=== PATIENT | female | born 1985 | race Two or more races ===

== ENCOUNTER 2018-10-27 21:15 | Inpatient (IN) | payer SELFPAY ==
[2018-10-27] MEDS ORDERED: Sodium Chloride 0.9% 10 ML Syringe FLUSH PRN (21:17)
[2018-10-27] MEDS ORDERED: Ondansetron 4 MG/2 ML SDV IVPUSH PRN (21:17)
[2018-10-27] MEDS ORDERED: Oxytocin 10 Units/1 ML SDV IM ONE (21:17)
[2018-10-27] MEDS ORDERED: Nalbuphine 20 MG/ML 1 ML Syringe IVPUSH PRN (21:17)
--- NOTE | 2018-10-27 21:21 | PCM.LDHP ---
L&D History of Present Illness - General Date of Service: 10/27/18 Admit Problem/Dx: Patient Status Order with Admit Dx/Problem 10/27/18 21:17 Patient Status [ADT] Routine Admission Diagnosis/Problem Admission Diagnosis/Problem Normal labor Source of Information: Patient History Limitations: Reports: No Limitations - History of Present Illness Introduction:: Patient is a 32 y/o at 38 2/7 wks presents in labor. Contractions started earlier this PM. Decided to watch at home for awhile. now quite intense - Related Data Allergies/Adverse Reactions: Allergies Allergy/AdvReac Type Severity Reaction Status Date / Time No Known Allergies Allergy Verified 04/03/15 08:27 Home Medications: Home Meds Vit 90/Iron Fum/Folic [ Formula] 1 tab PO DAILY 04/03/15 [ History] Docusate Sodium [Colace] 100 mg PO BID PRN #30 cap 04/04/15 [Rx] Ibuprofen [Motrin] 600 mg PO Q4H PRN #30 tablet 04/04/15 [Rx] Lanolin [Lansinoh HPA] 1 applic TOP ASDIRECTED PRN #30 tube 04/04/15 [Rx] Past Medical History - Past Health History Medical/Surgical History: Denies Medical/Surgical History [employer] History: Reports: : 5 Para: 3 LMP (Approximate): Social & Family History - Tobacco Use Smoking Status *Q: Never Smoker - Alcohol Use Alcohol Use History: No - Recreational Drug Use Recreational Drug Use: No H&P Review of Systems - Review of Systems: Review Of Systems: See Below General: Reports: No Symptoms Pulmonary: Reports: No Symptoms Cardiovascular: Reports: No Symptoms Gastrointestinal: Reports: No Symptoms Genitourinary: Reports: No Symptoms Musculoskeletal: Reports: No Symptoms Psychiatric: Reports: No Symptoms L&D Exam - Exam Exam: See Below - OB Specific Contraction Intensity: Strong Movement: Active Heart Tones: Present Heart Tones per Min: 130 Heart Rate (FHR) Variability: Moderate (6-25 bmp) Presentation: Vertex - Nye Score Nye Score Cervix Position: Anterior Nye Score Consistency: Soft Nye Score Effacement: >80% Nye Score Dilation: > 5 cm Nye Score Infant's Station: +1, +2 Nye Score Total: 13 - Exam General: Alert, Oriented, Cooperative Lungs: Clear to Auscultation, Normal Respiratory Effort Cardiovascular: Regular Rate, Regular Rhythm GI/Abdominal Exam: Soft, Non-Tender Genitourinary: Normal external exam Extremities: Normal Inspection Skin: Warm, Dry, Intact - Patient Data Result Diagrams: 10/27/18 21:33 - Problem List (1) 38 weeks gestation of SNOMED Code(s): 54372572 ICD Code: Z3A.38 - 38 WEEKS GESTATION OF Status: Acute Current Visit: Yes (2) Normal labor SNOMED Code(s): 02451626 ICD Code: O80 - ENCOUNTER FOR FULL-TERM UNCOMPLICATED DELIVERY; Z37.9 - OUTCOME OF DELIVERY, UNSPECIFIED Status: Acute Current Visit: Yes (3) GBS (group B Streptococcus carrier), +RV culture, currently SNOMED Code(s): 3786378804199, 056309119, 4047312459091 ICD Code: O99.820 - STREPTOCOCCUS B CARRIER STATE COMPLICATING Status: Acute Current Visit: Yes Problem List Initiated/Reviewed/Updated: Yes Orders Last 24hrs: Active Orders 24 hr Category Date Time Status Patient Status [ADT] Routine ADT 10/27/18 21:17 Ordered Activity as Tolerated [RC] PFP Care 10/27/18 21:17 Ordered Communication Order [RC] ASDIRECTED Care 10/27/18 21:17 Ordered Heart Tones [RC] ASDIRECTED Care 10/27/18 21:17 Ordered Non Stress Test [RC] PER UNIT ROUTINE Care 10/27/18 21:17 Ordered Peripheral IV Care [RC] . DIRECTED Care 10/27/18 21:17 Ordered Vital Signs [RC] PER UNIT ROUTINE Care 10/27/18 21:17 Ordered Regular Diet [DIET] Diet 10/27/18 Dinner Ordered CBC W/O DIFF,HEMOGRAM [HEME] Routine Lab 10/27/18 21:17 Ordered RAPID PLASMA REAGIN,RPR [CHEM] Routine Lab 10/27/18 21:17 Ordered TYPE AND SCREEN [BBK] Routine Lab 10/27/18 21:17 Ordered Ampicillin 1 gm Med 10/27/18 21:30 Ordered Sodium Chloride 0.9% [Normal Saline] 100 ml IV Q4H Ampicillin 2 gm Med 10/27/18 21:17 Ordered Sodium Chloride 0.9% [Normal Saline] 100 ml IV ONETIME Nalbuphine [Nubain] Med 10/27/18 21:17 Ordered 10 mg IVPUSH Q2H PRN Ondansetron [Zofran] Med 10/27/18 21:17 Ordered 4 mg IVPUSH Q4H PRN Oxytocin [Pitocin] Med 10/27/18 21:17 Once 10 unit IM ONETIME ONE Sodium Chloride 0.9% [Saline Flush] Med 10/27/18 21:17 Ordered 10 ml FLUSH ASDIRECTED PRN Electronic Heart Tones Ext w TOCO [WOMSER] Oth 10/27/18 21:17 Ordered Routine Peripheral IV Insertion Adult [OM.PC] Routine Oth 10/27/18 21:17 Ordered Resuscitation Status Routine Resus Stat 10/27/18 21:17 Ordered Assessment/Plan Comment:: 32 y/o at 38 2/7 wks presents in labor * Labs * GBS positive, will start antibiotics, but patient 9 cm on admission. Likely will not be adequately treated * Plans unmedicated delivery * Anticipate
[2018-10-27] MEDS ORDERED: Ampicillin 2 GM in Sodium Chloride 0.9% 100 ML IV ONE (21:30)
--- NOTE | 2018-10-27 22:49 | PCM.DEL ---
L & D Note - General Info Date of Service: 10/27/18 - Delivery Note Labor: Spontaneous Delivery Outcome: Livebirth Delivery Method: Spontaneous Vaginal Delivery-Single Delivery Mode: Spontaneous Presentation: Right Occiput Anterior (EAN) Nuchal Cord: Present, Reduced Anesthesia Type: None Amniotic Fluid Description: Clear Episiotomy Type: None Laceration: None Placenta: Intact, Spontaneous Cord: 3 Vessels Estimated Blood Loss: 200 [place]: Bulb Syringe, Stimulated, Warmed, Lead Used Delivery Comments (Free Text/Narrative):: Patient found to be complete and began pushing. With maternal pushing effort head delivered from an EAN presentation. Nuchal cord present and reduced. With gentle downward traction the shoulders and body delivered. placed on maternal abdomen. Cord clamped and cut. Cord blood obtained. Placenta allowed time to separate and expelled intact. inspection of the perineum showed no lacerations - General Info Date of Service: 10/27/18 - Patient Data Vitals - Most Recent: Last Vital Signs Temp Pulse Resp 18 10/27/18 21:17 BP 128/79 10/27/18 21:17 Pulse Ox 98 10/27/18 21:17 Lab Results Last 24 Hours: Laboratory Results - last 24 hr 10/27/18 10/27/18 Range/Units 21:33 21:33 WBC 10.80 H (3.98-10.04) K/mm3 RBC 4.46 (3.98-5.22) M/mm3 Hgb 13.0 (11.2-15.7) gm/L Hct 37.2 (34.1-44.9) % MCV 83.4 (79.4-94.8) fl MCH 29.1 (25.6-32.2) pg MCHC 34.9 (32.2-35.5) g/dl RDW Std Deviation 37.8 (36.4-46.3) fL Plt Count 269 (182-369) K/mm3 MPV 11.1 (9.4-12.3) fl Blood Type O POSITIVE Gel Antibody Screen Negative Med Orders - Current: Current Medications Ampicillin Sodium 1 gm/ Sodium (Chloride) 100 mls @ 200 mls/hr IV Q4H KEVYN Nalbuphine HCl (Nubain) 10 mg IVPUSH Q2H PRN PRN Reason: pain Ondansetron HCl (Zofran) 4 mg IVPUSH Q4H PRN PRN Reason: Nausea/Vomiting Sodium Chloride (Saline Flush) 10 ml FLUSH ASDIRECTED PRN PRN Reason: Keep Vein Open Discontinued Medications Ampicillin Sodium 2 gm/ Sodium (Chloride) 100 mls @ 200 mls/hr IV ONETIME ONE Stop: 10/27/18 21:59 Oxytocin (Pitocin) 10 unit IM ONETIME ONE Stop: 10/27/18 21:18 - Problem List & Annotations (1) 38 weeks gestation of SNOMED Code(s): 24829786 Code(s): Z3A.38 - 38 WEEKS GESTATION OF Status: Acute Current Visit: Yes (2) Normal labor SNOMED Code(s): 68053656 Code(s): O80 - ENCOUNTER FOR FULL-TERM UNCOMPLICATED DELIVERY; Z37.9 - OUTCOME OF DELIVERY, UNSPECIFIED Status: Acute Current Visit: Yes (3) GBS (group B Streptococcus carrier), +RV culture, currently SNOMED Code(s): 3510559599508, 853970683, 9742916149984 Code(s): O99.820 - STREPTOCOCCUS B CARRIER STATE COMPLICATING Status: Acute Current Visit: Yes (4) Vaginal delivery SNOMED Code(s): 388498910 Code(s): O80 - ENCOUNTER FOR FULL-TERM UNCOMPLICATED DELIVERY Status: Acute Current Visit: Yes - Problem List Review Problem List Initiated/Reviewed/Updated: Yes - My Orders Last 24 Hours: My Active Orders 10/27/18 21:17 Patient Status [ADT] Routine Activity as Tolerated [RC] PFP Communication Order [RC] ASDIRECTED Non Stress Test [RC] PER UNIT ROUTINE Peripheral IV Care [RC] . DIRECTED Vital Signs [RC] PER UNIT ROUTINE Nalbuphine [Nubain] 10 mg IVPUSH Q2H PRN Ondansetron [Zofran] 4 mg IVPUSH Q4H PRN Sodium Chloride 0.9% [Saline Flush] 10 ml FLUSH ASDIRECTED PRN Electronic Heart Tones Ext w TOCO [WOMSER] Routine Peripheral IV Insertion Adult [OM.PC] Routine Resuscitation Status Routine 10/27/18 21:33 RAPID PLASMA REAGIN,RPR [CHEM] Routine 10/27/18 22:40 Patient Status Manage Transfer [TRANSFER] Routine 10/27/18 Dinner Regular Diet [DIET] 10/28/18 01:30 Ampicillin 1 gm Sodium Chloride 0.9% [Normal Saline] 100 ml IV Q4H - Assessment Assessment:: 32 y/o PPD#0 from at 38 2/7 wks - Plan Plan:: * Routine cares * Breast feeding * Discharge home in 2 days
[2018-10-27] MEDS ORDERED: Oxytocin/Lactated Ringers 10 UNIT/1,000 ML BAG IV SCH (23:45)
[2018-10-28] MEDS ORDERED: Benzocaine/Menthol 20%-0.5% Spray 56 GM Canister TOP PRN (00:26)
[2018-10-28] MEDS ORDERED: Acetaminophen 325 MG Tab PO PRN (00:26)
[2018-10-28] MEDS ORDERED: Docusate Sodium 100 MG Cap PO PRN (00:26)
[2018-10-28] MEDS ORDERED: Lanolin 100% Cream 7 GM Tube TOP PRN (00:26)
[2018-10-28] MEDS ORDERED: Witch Hazel Medicated Pads 40/Jar TOP PRN (00:26)
[2018-10-28] MEDS ORDERED: Ampicillin 1 GM in Sodium Chloride 0.9% 100 ML IV SCH (01:30)
[2018-10-28] MEDS: Ibuprofen 600 MG Tab PO PRN ×3 (03:38→20:59)
--- NOTE | 2018-10-28 08:10 | PCM.PNPP ---
- General Info Date of Service: 10/28/18 Functional Status: Reports: Pain Controlled, Tolerating Diet, Ambulating, Urinating - Review of Systems General: Reports: No Symptoms Pulmonary: Reports: No Symptoms Cardiovascular: Reports: No Symptoms Gastrointestinal: Reports: No Symptoms Genitourinary: Reports: No Symptoms Musculoskeletal: Reports: No Symptoms Neurological: Reports: No Symptoms - Patient Data Vital Signs - Most Recent: Last Vital Signs Temp 36.9 C 10/28/18 03:00 Pulse 70 10/28/18 03:00 Resp 16 10/28/18 03:00 BP 98/60 10/28/18 03:00 Pulse Ox 98 10/28/18 03:00 Weight - Most Recent: 55.338 kg I&O - Last 24 Hours: Intake & Output 10/27/18 10/28/18 10/28/18 22:59 06:59 14:59 Intake Total 1000 Balance 1000 Lab Results - Last 24 Hours: Laboratory Results - last 24 hr 10/27/18 10/27/18 10/27/18 Range/Units 21:33 21:33 21:33 WBC 10.80 H (3.98-10.04) K/mm3 RBC 4.46 (3.98-5.22) M/mm3 Hgb 13.0 (11.2-15.7) gm/L Hct 37.2 (34.1-44.9) % MCV 83.4 (79.4-94.8) fl MCH 29.1 (25.6-32.2) pg MCHC 34.9 (32.2-35.5) g/dl RDW Std Deviation 37.8 (36.4-46.3) fL Plt Count 269 (182-369) K/mm3 MPV 11.1 (9.4-12.3) fl RPR Non-reactive (NONREACTIVE) Blood Type O POSITIVE Gel Antibody Screen Negative Med Orders - Current: Current Medications Acetaminophen (Tylenol) 650 mg PO Q4H PRN PRN Reason: mild pain or fever Benzocaine/Menthol (Dermoplast Pain Relief [place]) 0 gm TOP ASDIRECTED PRN PRN Reason: Perineal Comfort Measure Docusate Sodium (Colace) 100 mg PO BID PRN PRN Reason: Constipation Emollient Ointment (Lansinoh Hpa) 0 gm TOP ASDIRECTED PRN PRN Reason: Sore Nipples Oxytocin/Lactated Ringer's (Pitocin In Lr 10 Units/1,000 Ml) 10 unit in 1,000 mls @ 3,000 mls/hr IV CONTINUOUS KEVYN Last Admin: 10/27/18 22:20 Dose: 500 munits/min, 3,000 mls/hr Ibuprofen (Motrin) 600 mg PO Q6H PRN PRN Reason: Mild pain or fever Last Admin: 10/28/18 03:38 Dose: 600 mg Witch Marilia (Tucks) 1 pad TOP ASDIRECTED PRN PRN Reason: Perineal Comfort Measure Last Admin: 10/28/18 00:37 Dose: 1 applic Discontinued Medications Ampicillin Sodium 2 gm/ Sodium (Chloride) 100 mls @ 200 mls/hr IV ONETIME ONE Stop: 10/27/18 21:59 Last Admin: 10/27/18 21:40 Dose: 200 mls/hr Ampicillin Sodium 1 gm/ Sodium (Chloride) 100 mls @ 200 mls/hr IV Q4H KEVYN Nalbuphine HCl (Nubain) 10 mg IVPUSH Q2H PRN PRN Reason: pain Ondansetron HCl (Zofran) 4 mg IVPUSH Q4H PRN PRN Reason: Nausea/Vomiting Oxytocin (Pitocin) 10 unit IM ONETIME ONE Stop: 10/27/18 21:18 Last Admin: 10/28/18 02:22 Dose: Not Given Sodium Chloride (Saline Flush) 10 ml FLUSH ASDIRECTED PRN PRN Reason: Keep Vein Open - Interaction Disposition, : in Room with Family Interaction: Holding Infant Feeding: Breastfed ; Nursed Well Support Person: - Recovery Exam Fundal Tone: Firm Fundal Level: At Umbilicus Fundal Placement: Midline Lochia Amount: Small Lochia Color: Rubra/Red Perineum Description: Intact, Minimal Bruising/Swelling Bladder Status: Voiding Urinary Elimination: Voided - Exam General: Alert, Oriented, Cooperative GI/Abdominal Exam: Soft, Non-Tender Extremities: Normal Inspection Skin: Warm, Dry, Intact - Problem List & Annotations (1) 38 weeks gestation of SNOMED Code(s): 98939318 Code(s): Z3A.38 - 38 WEEKS GESTATION OF Status: Acute Current Visit: Yes (2) Normal labor SNOMED Code(s): 67412074 Code(s): O80 - ENCOUNTER FOR FULL-TERM UNCOMPLICATED DELIVERY; Z37.9 - OUTCOME OF DELIVERY, UNSPECIFIED Status: Acute Current Visit: Yes (3) GBS (group B Streptococcus carrier), +RV culture, currently SNOMED Code(s): 2463764652811, 396664366, 5974936341984 Code(s): O99.820 - STREPTOCOCCUS B CARRIER STATE COMPLICATING Status: Acute Current Visit: Yes (4) Vaginal delivery SNOMED Code(s): 068526586 Code(s): O80 - ENCOUNTER FOR FULL-TERM UNCOMPLICATED DELIVERY Status: Acute Current Visit: Yes - Problem List Review Problem List Initiated/Reviewed/Updated: Yes - My Orders Last 24 Hours: My Active Orders 10/27/18 21:17 Peripheral IV Care [RC] . DIRECTED Resuscitation Status Routine 10/27/18 23:45 Oxytocin/Lactated Ringers [Pitocin in LR 10 Units/1,000 ML] 10 unit in 1,000 ml IV CONTINUOUS 10/28/18 00:26 Activity as Tolerated [RC] PER UNIT ROUTINE Vital Signs [RC] 03,09,15,21 Acetaminophen [Tylenol] 650 mg PO Q4H PRN Benzocaine/Menthol [Dermoplast Pain Relief [place]] See Dose Instructions TOP ASDIRECTED PRN Docusate Sodium [Colace] 100 mg PO BID PRN Ibuprofen [Motrin] 600 mg PO Q6H PRN Lanolin [Lansinoh HPA] See Dose Instructions TOP ASDIRECTED PRN Witch Marilia [Tucks] 1 pad TOP ASDIRECTED PRN Assess Lochia [WOMSER] Per Unit Routine Assess Uterine Involution [WOMSER] Per Unit Routine Breast Pump [WOMSER] Per Unit Routine Heat Therapy [OM.PC] PRN Ice Therapy [OM.PC] Per Unit Routine Perineal Care [OM.PC] Per Unit Routine Peripheral IV Discontinue [OM.PC] Routine Sitz Bath [OM.PC] Per Unit Routine 10/28/18 Breakfast Regular Diet [DIET] 10/29/18 00:26 Heat Therapy [OM.PC] PRN - Assessment Assessment:: 32 y/o PPD#1 from at 38 2/7 wks - Plan Plan:: * Routine cares * Breast feeding * Discharge home tomorrow
--- NOTE | 2018-10-29 08:06 | PCM.PNPP ---
- General Info Date of Service: 10/29/18 Functional Status: Reports: Pain Controlled, Tolerating Diet, Ambulating, Urinating - Review of Systems General: Reports: No Symptoms Pulmonary: Reports: No Symptoms Cardiovascular: Reports: No Symptoms Gastrointestinal: Reports: No Symptoms Genitourinary: Reports: No Symptoms Musculoskeletal: Reports: No Symptoms Neurological: Reports: No Symptoms - Patient Data Vital Signs - Most Recent: Last Vital Signs Temp 36.3 C 10/29/18 07:48 Pulse 71 10/29/18 07:48 Resp 14 10/29/18 07:48 BP 116/86 10/29/18 07:48 Pulse Ox 99 10/29/18 07:48 Weight - Most Recent: 55.338 kg Med Orders - Current: Current Medications Acetaminophen (Tylenol) 650 mg PO Q4H PRN PRN Reason: mild pain or fever Last Admin: 10/29/18 07:43 Dose: 650 mg Benzocaine/Menthol (Dermoplast Pain Relief [place]) 0 gm TOP ASDIRECTED PRN PRN Reason: Perineal Comfort Measure Docusate Sodium (Colace) 100 mg PO BID PRN PRN Reason: Constipation Emollient Ointment (Lansinoh Hpa) 0 gm TOP ASDIRECTED PRN PRN Reason: Sore Nipples Oxytocin/Lactated Ringer's (Pitocin In Lr 10 Units/1,000 Ml) 10 unit in 1,000 mls @ 3,000 mls/hr IV CONTINUOUS KEVYN Last Admin: 10/27/18 22:20 Dose: 500 munits/min, 3,000 mls/hr Ibuprofen (Motrin) 600 mg PO Q6H PRN PRN Reason: Mild pain or fever Last Admin: 10/28/18 20:59 Dose: 600 mg Witch Marilia (Tucks) 1 pad TOP ASDIRECTED PRN PRN Reason: Perineal Comfort Measure Last Admin: 10/28/18 00:37 Dose: 1 applic Discontinued Medications Ampicillin Sodium 2 gm/ Sodium (Chloride) 100 mls @ 200 mls/hr IV ONETIME ONE Stop: 10/27/18 21:59 Last Admin: 10/27/18 21:40 Dose: 200 mls/hr Ampicillin Sodium 1 gm/ Sodium (Chloride) 100 mls @ 200 mls/hr IV Q4H KEVYN Nalbuphine HCl (Nubain) 10 mg IVPUSH Q2H PRN PRN Reason: pain Ondansetron HCl (Zofran) 4 mg IVPUSH Q4H PRN PRN Reason: Nausea/Vomiting Oxytocin (Pitocin) 10 unit IM ONETIME ONE Stop: 10/27/18 21:18 Last Admin: 10/28/18 02:22 Dose: Not Given Sodium Chloride (Saline Flush) 10 ml FLUSH ASDIRECTED PRN PRN Reason: Keep Vein Open - Infant Interaction Infant Disposition, : in Room with Family Infant Interaction: Holding Infant Infant Feeding: Breastfed ; Nursed Well Support Person: - Recovery Exam Fundal Tone: Firm Fundal Level: 1 Fingerbreadths Below Umbilicus Fundal Placement: Midline Lochia Amount: Scant, Small Lochia Color: Rubra/Red Perineum Description: Intact, Minimal Bruising/Swelling Episiotomy/Laceration: None Bladder Status: Nonpalpable, Voiding Urinary Elimination: Voided - Exam General: Alert, Oriented, Cooperative GI/Abdominal Exam: Soft, Non-Tender Extremities: Normal Inspection Skin: Warm, Dry, Intact - Problem List & Annotations (1) 38 weeks gestation of SNOMED Code(s): 70587363 Code(s): Z3A.38 - 38 WEEKS GESTATION OF Status: Acute Current Visit: Yes (2) Normal labor SNOMED Code(s): 80325503 Code(s): O80 - ENCOUNTER FOR FULL-TERM UNCOMPLICATED DELIVERY; Z37.9 - OUTCOME OF DELIVERY, UNSPECIFIED Status: Acute Current Visit: Yes (3) GBS (group B Streptococcus carrier), +RV culture, currently SNOMED Code(s): 4749703888231, 793693434, 9620579335440 Code(s): O99.820 - STREPTOCOCCUS B CARRIER STATE COMPLICATING Status: Acute Current Visit: Yes (4) Vaginal delivery SNOMED Code(s): 497872343 Code(s): O80 - ENCOUNTER FOR FULL-TERM UNCOMPLICATED DELIVERY Status: Acute Current Visit: Yes - Problem List Review Problem List Initiated/Reviewed/Updated: Yes - My Orders Last 24 Hours: My Active Orders 10/29/18 00:26 Heat Therapy [OM.PC] PRN 10/29/18 08:04 Ready for Discharge [RC] PER UNIT ROUTINE - Assessment Assessment:: 32 y/o PPD#2 from at 38 2/7 wks - Plan Plan:: * Routine cares * Breast feeding * Discharge home today
--- NOTE | 2018-10-29 08:08 | PCM.DCSUM1 ---
Discharge Summary - Discharge Data Discharge Date: 10/29/18 Discharge Disposition: Home, Self-Care 01 Condition: Good - Discharge Diagnosis/Problem(s) (1) 38 weeks gestation of SNOMED Code(s): 58253960 ICD Code: Z3A.38 - 38 WEEKS GESTATION OF Status: Acute Current Visit: Yes (2) Normal labor SNOMED Code(s): 09986795 ICD Code: O80 - ENCOUNTER FOR FULL-TERM UNCOMPLICATED DELIVERY; Z37.9 - OUTCOME OF DELIVERY, UNSPECIFIED Status: Acute Current Visit: Yes (3) GBS (group B Streptococcus carrier), +RV culture, currently SNOMED Code(s): 1334721483709, 080246673, 4963838065656 ICD Code: O99.820 - STREPTOCOCCUS B CARRIER STATE COMPLICATING Status: Acute Current Visit: Yes (4) Vaginal delivery SNOMED Code(s): 798581664 ICD Code: O80 - ENCOUNTER FOR FULL-TERM UNCOMPLICATED DELIVERY Status: Acute Current Visit: Yes - Patient Summary/Data Complications: None Consults: None Recommended Follow-up Testing/Procedures: Follow up in 2 weeks for check Hospital Course: 32 y/o at 38 2/7 wks who presented in labor. Was 9 cm on admission. Progressed rapidly to complete dilation and underwent an uncomplicated . See delivery note. she did well and was discharged home on PPD#2 - Patient Instructions Diet: Regular Diet as Tolerated Activity: As Tolerated Activity, Other: Pelvic rest for 6 weeks Driving: May Drive Today Showering/Bathing: May Shower Showering/Bathing, Other: May bathe Notify Provider of: Fever, Increased Pain, Swelling and Redness, Drainage, Nausea and/or Vomiting - Discharge Plan *PRESCRIPTION DRUG MONITORING PROGRAM REVIEWED*: Not Applicable *COPY OF PRESCRIPTION DRUG MONITORING REPORT IN PATIENT JOY: Not Applicable Home Medications: Home Meds Vit 90/Iron Fum/Folic [ Formula] 1 tab PO DAILY 04/03/15 [ History] Docusate Sodium [Colace] 100 mg PO BID PRN cap 10/28/18 [Rx] Ibuprofen [Motrin] 600 mg PO Q6H PRN tablet 10/28/18 [Rx] Referrals: Jacinto Son MD [Physician] - (2 weeks for check) - Discharge Summary/Plan Comment DC Time >30 min.: No - Patient Data Vitals - Most Recent: Last Vital Signs Temp 36.3 C 10/29/18 07:48 Pulse 71 10/29/18 07:48 Resp 14 10/29/18 07:48 BP 116/86 10/29/18 07:48 Pulse Ox 99 10/29/18 07:48 Weight - Most Recent: 55.338 kg Med Orders - Current: Current Medications Acetaminophen (Tylenol) 650 mg PO Q4H PRN PRN Reason: mild pain or fever Last Admin: 10/29/18 07:43 Dose: 650 mg Benzocaine/Menthol (Dermoplast Pain Relief [place]) 0 gm TOP ASDIRECTED PRN PRN Reason: Perineal Comfort Measure Docusate Sodium (Colace) 100 mg PO BID PRN PRN Reason: Constipation Emollient Ointment (Lansinoh Hpa) 0 gm TOP ASDIRECTED PRN PRN Reason: Sore Nipples Oxytocin/Lactated Ringer's (Pitocin In Lr 10 Units/1,000 Ml) 10 unit in 1,000 mls @ 3,000 mls/hr IV CONTINUOUS KEVYN Last Admin: 10/27/18 22:20 Dose: 500 munits/min, 3,000 mls/hr Ibuprofen (Motrin) 600 mg PO Q6H PRN PRN Reason: Mild pain or fever Last Admin: 10/28/18 20:59 Dose: 600 mg Witch Marilia (Tucks) 1 pad TOP ASDIRECTED PRN PRN Reason: Perineal Comfort Measure Last Admin: 10/28/18 00:37 Dose: 1 applic Discontinued Medications Ampicillin Sodium 2 gm/ Sodium (Chloride) 100 mls @ 200 mls/hr IV ONETIME ONE Stop: 10/27/18 21:59 Last Admin: 10/27/18 21:40 Dose: 200 mls/hr Ampicillin Sodium 1 gm/ Sodium (Chloride) 100 mls @ 200 mls/hr IV Q4H KEVYN Nalbuphine HCl (Nubain) 10 mg IVPUSH Q2H PRN PRN Reason: pain Ondansetron HCl (Zofran) 4 mg IVPUSH Q4H PRN PRN Reason: Nausea/Vomiting Oxytocin (Pitocin) 10 unit IM ONETIME ONE Stop: 10/27/18 21:18 Last Admin: 10/28/18 02:22 Dose: Not Given Sodium Chloride (Saline Flush) 10 ml FLUSH ASDIRECTED PRN PRN Reason: Keep Vein Open
[2018-10-29] MEDS: Ibuprofen 600 MG Tab PO PRN (14:06)
[2018-10-29 14:25] VITALS: BP 109/70
== END 2018-10-29 18:10 | disposition home or self-care (01) | DRG 807 ==
LOC: JD.OBCHECK 21:15 → OBSVTOIN 21:17 → JD.OB 21:17 → JD.OBCHECK 21:17 → JD.OB 21:22
PROVIDERS: ADMIT Obstetrics & Gynecology; ATTEND Obstetrics & Gynecology
PROC: 10E0XZZ Delivery of Products of Conception, External Approach (ICD-10-PCS; principal; 2018-10-27)
PROC: 6A550ZT Pheresis of Cord Blood Stem Cells, Single (ICD-10-PCS; principal; 2018-10-27)
DX: O99.824 Streptococcus B carrier state complicating childbirth (principal); Z37.0 Single live birth; O69.81X0 Labor and delivery complicated by cord around neck, without compression, not applicable or unspecified; Z3A.38 38 weeks gestation of pregnancy
CPT/HCPCS: 36415; 59025; 59409; 85027; 86592; 86850; 86900; 86901; A9270-GY; J0290; J2590; J7030